=== PATIENT | female | born 1975 | race Caucasian/White ===

== ENCOUNTER 2021-11-29 17:39 | Emergency (ER) | payer OTHER ==
[2021-11-29] MEDS ORDERED: Ibuprofen 600 MG Tab PO ONE (17:49)
== END 2021-11-29 18:41 | disposition home or self-care (01) ==
LOC: JD.ED 17:39
DX: M79.601 Pain in right arm (principal); V49.40XA Driver injured in collision with unspecified motor vehicles in traffic accident, initial encounter; Y92.410 Unspecified street and highway as the place of occurrence of the external cause
CPT/HCPCS: 71045; 73060; 99284; A9270; 99282